=== PATIENT | female | born 1955 | race Two or more races ===

== ENCOUNTER 2019-06-24 08:40 | Day surgery (SDC) | payer OTHER | END 2019-06-24 14:45 | disposition home or self-care (01) | LOC: AMB-ENDOS 08:40 → ADM 13:30 → AMB-ENDOS 13:30 | DX: K57.32 Diverticulitis of large intestine without perforation or abscess without bleeding (principal); K64.1 Second degree hemorrhoids; K57.30 Diverticulosis of large intestine without perforation or abscess without bleeding; Z93.3 Colostomy status ==

== ENCOUNTER 2019-09-28 09:00 | Inpatient (IN) | payer OTHER ==
[~2019-09-28] VITALS: Ht 154.9 cm; Wt 83.0 kg
[2019-09-28] MEDS ORDERED: CATAFLAN PO (13:56)
[2019-10-05] MEDS ORDERED: DICLOFENAC POTA50 MG (16:32)
== END 2019-10-13 19:46 | disposition home or self-care (01) | DRG 940 ==
LOC: EDSTATUS 09:00 → ADM 09:00 → SURH 10-05 07:00 → O/R 10-05 08:14 → SURH 10-05 09:00 → SURG 10-05 18:19
PROVIDERS: ADMIT Colon & Rectal Surgery; ATTEND Colon & Rectal Surgery
PROC: 0WQF0ZZ Repair Abdominal Wall, Open Approach (ICD-10-PCS; 2019-10-05)
PROC: 0DJD8ZZ Inspection of Lower Intestinal Tract, Via Natural or Artificial Opening Endoscopic (ICD-10-PCS; 2019-10-05)
PROC: 4A033R1 Measurement of Arterial Saturation, Peripheral, Percutaneous Approach (ICD-10-PCS; 2019-10-05)
PROC: 4A12X4Z Monitoring of Cardiac Electrical Activity, External Approach (ICD-10-PCS; 2019-10-05)
PROC: 0DSN0ZZ Reposition Sigmoid Colon, Open Approach (ICD-10-PCS; principal; 2019-10-05 07:00)
DX: Z93.3 Colostomy status (principal); K43.3 Parastomal hernia with obstruction, without gangrene; K57.30 Diverticulosis of large intestine without perforation or abscess without bleeding; R50.82 Postprocedural fever; G47.33 Obstructive sleep apnea (adult) (pediatric); E66.09 Other obesity due to excess calories; Z03.818 Encounter for observation for suspected exposure to other biological agents ruled out

== ENCOUNTER 2019-09-28 14:37 | Outpatient (CLI) | payer OTHER ==
[~2019-09-28 14:37] MED LIST: CATAFLAN PO
== END 2019-09-30 13:59 | disposition home or self-care (01) ==
LOC: NUCLEAR 14:37
DX: I87.2 Venous insufficiency (chronic) (peripheral) (principal); Z86.718 Personal history of other venous thrombosis and embolism

== ENCOUNTER 2024-04-12 13:53 | Inpatient (IN) | payer OTHER ==
[~2024-04-12] VITALS: Ht 154.9 cm; Wt 90.7 kg
[~2024-04-12 13:53] MED LIST changes: +DICLOFENAC POTA50 MG
--- NOTE | 2024-04-12 14:11 | NUR ---
PACIENTE PRESENTA DOLOR ABDOMINAL DESDE SOFY HX PERFORACION DE DIVERTICULO FUE OPERADA POR DR. SAAVEDRA CON ILEOSTOMIA QUE SE REVIRTIO. SE MIDEN Y REPORTAN SIG- NOS VITALES Y SE UBICA EN AREA DE OBSERVACION.
[2024-04-12] MEDS ORDERED: 0.9 % SODIUM CHLORIDE 1,000 ML IV SCH (16:45)
[2024-04-12] MEDS ORDERED: KETOROLAC TROMETHAMINE 30 MG VIAL IV ONE (16:45)
[2024-04-12] MEDS ORDERED: ONDANSETRON HCL 2 MG/ML VIAL IV STA (17:26)
[2024-04-12 17:45] LABS: HEMATOCRIT 49.3 % (36.0-45.00); HEMOGLOBIN 16.6 g/dL (12.0-15.00); MEAN CELL VOLUME 84.7 fL (80.00-100.00); MEAN CORPUSCULAR HEMOGLOBIN 28.5 pg (27.00-32.0); MEAN CORPUSCULAR HGB CONC 33.6 g/dl (32.0-36.0); PLATELET COUNT 260 K/uL (150-450); RED BLOOD COUNT 5.82 M/uL (4.00-6.00); RED CELL DISTRIBUTION WIDTH 14.9 % (11.5-14.5)
[2024-04-12 18:00] LABS: CALCIUM 9.8 mg/dL (8.5-10.1); CREATININE SERUM 0.78 mg/dL (0.55-1.02); GFR 73.01; POTASSIUM 3.73 mEq/L (3.5-5.1)
[2024-04-12 18:24] LABS: PH,URINE 5.5 (5.0-8.0); URINE APPEARANCE Cloudy; URINE BILIRRUBIN Small (NEGATIVE); URINE BLOOD Moderate; URINE COLOR Dark Yellow; URINE GLUCOSE Negative (NEGATIVE); URINE KETONE 15 (NEGATIVE); URINE LEUKOCYTE Small; URINE NITRATE Negative
[2024-04-12 18:25] LABS: URINE CAST 3.41 uL (0.0-1.40); URINE EPITHELIAL CELLS 58.9 uL (0.0-38.8); URINE RBC 13.3 uL (0.0-20.8); URINE WBC 120.5 uL (0.0-23.2)
[2024-04-12 18:54] LABS: URINE PROTEIN 300 (NEGATIVE)
[2024-04-12 18:55] LABS: URINE BACTERIA > 9821.2 uL (0.0-1933)
[2024-04-12] MEDS ORDERED: PROMETHAZINE HCL 25 MG/ML AMPUL IM ONE (21:15)
--- NOTE | 2024-04-12 21:35 | NUR ---
SE ORIENTA A PTE SOBRE TX MEDICO ORDENADO POR , SE REALIZA GERRY DE MEUSTRAS DE LAB DEIDRE ORDEN MEDICA Y BAJO MEDIDAS ASEPTICA. VENOPUNCION PATENTE BAJANDO IV FLUIDS POR REGULADOR.
[2024-04-12] MEDS ORDERED: PIPERACILLIN/TAZOBACTAM SODIUM 3.375 GM VIAL IV ONE (22:00)
--- NOTE | 2024-04-12 22:51 | NUR ---
SE ORIENTA PTE SOBRE INSERCION DE NGT EL CUAL REFIERE ENTENDER.SE INTENTA ABEBE OCASION INSERTAR NGT Y PTE REHUSA.
[2024-04-12 23:36] LABS: AMYLASE 40 U/L (25-115); LIPASE 18 U/L (13-75)
[2024-04-13] MEDS ORDERED: ONDANSETRON HCL 4 MG in 0.9 % SODIUM CHLORIDE 50 ML IV PRN (00:15)
[2024-04-13] MEDS ORDERED: 0.9 % SODIUM CHLORIDE 1,000 ML IV SCH ×3 (00:15→09:15)
[2024-04-13] MEDS ORDERED: MORPHINE SULFATE 4 MG/ML CARTRIDGE IV ONE (00:15)
[2024-04-13] MEDS ORDERED: DEXTROSE 50 % IN WATER 0.5 G/ML DISP.SYRIN IV PRN (00:15)
[2024-04-13] MEDS ORDERED: INSULIN LISPRO 1,000 UNIT/10 ML UNITS SUBCUTANEO PRN (00:15)
[2024-04-13 01:55] LABS: INR 1.14; PARTIAL THROMBOPLASTIN TIME 30.3 SECONDS (22.0-34.0); PROTHROMBIN TIME 12.3 SECONDS (9.0-11.5)
[2024-04-13] MEDS ORDERED: MORPHINE SULFATE 4 MG/ML CARTRIDGE IV SCH (02:00)
[2024-04-13] MEDS ORDERED: PIPERACILLIN/TAZOBACTAM SODIUM 3.375 GM in DEXTROSE 5 % IN WATER 100 ML IV SCH (06:00)
[2024-04-13 06:44] LABS: ABG PH 7.309 (7.35-7.45); ABG PO2 76.8 mmHg (80-100); BASE EXCESS -8.5 mmol/l; BICARBONATE 16.7 mmol/l (23-25); SaO2 93.2 %; Tco2 17.7 mmol/l; o2 40 %
[2024-04-13 06:45] LABS: allen test SATISFACTORY; puncture site RADIAL RIGHT
[2024-04-13] MEDS ORDERED: MORPHINE SULFATE 4 MG/ML VIAL IV ONE (07:35)
[2024-04-13 08:05] LABS: ALBUMIN 3.3 gm/dL (3.4-5.0); BILIRUBIN TOTAL 1.8 mg/dL (0.3-1.2); CALCIUM 8.5 mg/dL (8.5-10.1); CREATININE SERUM 1.58 mg/dL (0.55-1.02); GFR 32.33; GLOBULINA 3.4 G/DL (2.4-3.5); POTASSIUM 4.31 mEq/L (3.5-5.1); TOTAL PROTEIN 6.7 gm/dL (6.4-8.2)
[2024-04-13] MEDS ORDERED: FAMOTIDINE/PF 20 MG in 0.9 % SODIUM CHLORIDE 8 ML IV PUSH SCH (09:00)
[2024-04-13 09:43] LABS: HEMATOCRIT 49.7 % (36.0-45.00); HEMOGLOBIN 16.4 g/dL (12.0-15.00); MEAN CELL VOLUME 86.2 fL (80.00-100.00); MEAN CORPUSCULAR HEMOGLOBIN 28.4 pg (27.00-32.0); RED BLOOD COUNT 5.77 M/uL (4.00-6.00); RED CELL DISTRIBUTION WIDTH 15.6 % (11.5-14.5)
[2024-04-13 09:43] LABS: ABG PH 7.369 (7.35-7.45); ABG PO2 330.6 mmHg (80-100); ABG pCO2 29.9 mmHg (35-45); BICARBONATE 16.8 mmol/l (23-25); SaO2 99.9 %; Tco2 17.8 mmol/l
[2024-04-13 09:44] LABS: allen test SATISFACTORY; o2 100 %; puncture site RADIAL RIGHT
[2024-04-13] MEDS ORDERED: RINGERS SOLUTION,LACTATED 1,000 ML IV SCH (10:00)
[2024-04-13] MEDS ORDERED: NOREPINEPHRINE BITARTRATE 1 MG/ML AMPUL IV SCH (10:00)
[2024-04-13 10:29] LABS: PLATELET COUNT 195 K/uL (150-450)
[2024-04-13] MEDS ORDERED: NOREPINEPHRINE BITARTRATE 4 MG/D5W WITH TITRATING INSTRUCTIONS IV SCH (10:30)
[2024-04-13] MEDS ORDERED: PROPOFOL 100 ML IV SCH (10:30)
[2024-04-13] MEDS ORDERED: DOPamine HCL IN DEXTROSE 5 % 250 ML IV SCH (15:30)
[2024-04-13] MEDS ORDERED: MIDAZOLAM HCL 50 MG/10 ML VIAL IV SCH (15:30)
[2024-04-13] MEDS ORDERED: MIDAZOLAM HCL 100 MG in 0.9 % SODIUM CHLORIDE 100 ML IV SCH (16:15)
[2024-04-13] MEDS ORDERED: MEROPENEM 500 MG/VIAL VIAL IV SCH (17:00)
[2024-04-13] MEDS ORDERED: METRONIDAZOLE/SODIUM CHLORIDE 100 ML IV SCH (17:00)
[2024-04-13] MEDS ORDERED: METOPROLOL TARTRATE 5MG/5ML AMPUL IV ONE (17:00)
[2024-04-13] MEDS ORDERED: VASOPRESSIN 20 UNITS/ML VIAL IV ONE (20:15)
[2024-04-13] MEDS ORDERED: SODIUM BICARBONATE 1 MEQ/ML DISP.SYRIN 50ML IV ONE (20:15)
[2024-04-13] MEDS ORDERED: LINEZOLID IN DEXTROSE 5% 300 ML IV SCH (21:00)
[2024-04-13] MEDS ORDERED: INSULIN GLARGINE,HUM.REC.ANLOG 1,000 UNITS/10 ML UNITS SUBCUTANEO SCH (21:00)
[2024-04-13 21:05] LABS: ABG PH 7.362 (7.35-7.45); ABG PO2 84.3 mmHg (80-100); ABG pCO2 34.7 mmHg (35-45); BASE EXCESS -5.3 mmol/l; BICARBONATE 19.3 mmol/l (23-25); SaO2 95.6 %; Tco2 20.3 mmol/l
[2024-04-13 21:06] LABS: allen test SATISFACTORY; o2 100 %; puncture site RADIAL LEFT
[2024-04-13] MEDS ORDERED: HYDROCORTISONE SODIUM SUCC/PF 100 MG VIAL IV ONE (21:30)
[2024-04-14] VITALS (27 sets, daily range): BP systolic 40–144; BP diastolic 20–129; O2SAT 79–100
[2024-04-14 06:21] LABS: ABG PH 7.164 (7.35-7.45); ABG pCO2 42.4 mmHg (35-45); BASE EXCESS -13.2 mmol/l; BICARBONATE 14.9 mmol/l (23-25); SaO2 97.8 %; Tco2 16.2 mmol/l; allen test SATISFACTORY; o2 100 %; puncture site RADIAL RIGHT
[2024-04-14 06:24] LABS: HEMATOCRIT 44.1 % (36.0-45.00); HEMOGLOBIN 14.4 g/dL (12.0-15.00); MEAN CELL VOLUME 86.6 fL (80.00-100.00); MEAN CORPUSCULAR HEMOGLOBIN 28.3 pg (27.00-32.0); MEAN CORPUSCULAR HGB CONC 32.7 g/dl (32.0-36.0); RED CELL DISTRIBUTION WIDTH 15.9 % (11.5-14.5)
[2024-04-14 06:34] LABS: PLATELET COUNT 122 K/uL (150-450)
[2024-04-14] MEDS ORDERED: PHENYLEPHRINE HCL 80 MG in 0.9 % SODIUM CHLORIDE 1,000 ML IV SCH (06:45)
[2024-04-14 06:52] LABS: ALBUMIN 2.1 gm/dL (3.4-5.0); BILIRUBIN TOTAL 0.81 mg/dL (0.3-1.2); CALCIUM 6.7 mg/dL (8.5-10.1); GLOBULINA 2.5 G/DL (2.4-3.5); PHOSPHOROUS 4.4 mg/dL (2.5-4.9); POTASSIUM 5.56 mEq/L (3.5-5.1); TOTAL PROTEIN 4.6 gm/dL (6.4-8.2)
[2024-04-14 07:21] LABS: GFR 9.23
[2024-04-14 07:22] LABS: C-REACTIVE PROTEIN 36.5 MG/DL (0.00-0.29)
[2024-04-14 07:23] LABS: CREATININE SERUM 4.68 mg/dL (0.55-1.02)
[2024-04-14] MEDS ORDERED: SODIUM BICARBONATE 1 MEQ/ML DISP.SYRIN 50ML IV SCH (08:00)
[2024-04-14] MEDS ORDERED: SODIUM BICARBONATE 1 MEQ/ML DISP.SYRIN 50ML IV ONE (08:45)
[2024-04-14] MEDS ORDERED: HYDROCORTISONE SODIUM SUCC/PF 100 MG VIAL IV SCH (09:00)
[2024-04-14] MEDS ORDERED: DOPamine HCL IN DEXTROSE 5 % 250 ML IV SCH (10:00)
[2024-04-14] MEDS ORDERED: NOREPINEPHRINE BITARTRATE 8 MG in DEXTROSE 5 % IN WATER 250 ML IV SCH (10:30)
[2024-04-14 12:34] LABS: ABG PH 7.205 (7.35-7.45); ABG PO2 176.8 mmHg (80-100); ABG pCO2 33.8 mmHg (35-45); BASE EXCESS -13.8 mmol/l; BICARBONATE 13.1 mmol/l (23-25); SaO2 99.1 %; Tco2 14.1 mmol/l
[2024-04-14 12:35] LABS: o2 100 %; puncture site RADIAL LEFT
[2024-04-14 12:36] LABS: allen test SATISFACTORY
[2024-04-14] MEDS ORDERED: SODIUM BICARBONATE 100 MEQ in DEXTROSE 5 % IN WATER 1,000 ML IV SCH (13:45)
[2024-04-14] MEDS ORDERED: NOREPINEPHRINE BITARTRATE 4 MG/D5W WITH TITRATING INSTRUCTIONS IV SCH (14:00)
[2024-04-14] MEDS ORDERED: 0.9 % SODIUM CHLORIDE 1,000 ML IV SCH (16:15)
[2024-04-14] MEDS ORDERED: EPINEPHRINE HCL/PF 4 MG in DEXTROSE 5 % IN WATER 250 ML IV SCH (17:15)
[2024-04-14] MEDS ORDERED: 0.9 % SODIUM CHLORIDE 1,000 ML IV ONE (17:15)
[2024-04-14] MEDS ORDERED: METRONIDAZOLE/SODIUM CHLORIDE 100 ML IV SCH (21:00)
[2024-04-14] MEDS ORDERED: MEROPENEM 500 MG/VIAL VIAL IV SCH (21:00)
[2024-04-15] VITALS (24 sets, daily range): BP systolic 39–164; BP diastolic 27–119; O2SAT 87–100
[2024-04-15 08:05] LABS: ALBUMIN 1.7 gm/dL (3.4-5.0); BILIRUBIN TOTAL 1.82 mg/dL (0.3-1.2); GLOBULINA 2.4 G/DL (2.4-3.5); POTASSIUM 5.88 mEq/L (3.5-5.1); TOTAL PROTEIN 4.1 gm/dL (6.4-8.2)
[2024-04-15 08:06] LABS: CALCIUM 5.2 mg/dL (8.5-10.1); CREATININE SERUM 6.12 mg/dL (0.55-1.02); GFR 6.78
[2024-04-15] MEDS ORDERED: 0.9 % SODIUM CHLORIDE 1,000 ML IV ONE (08:45)
[2024-04-15 09:14] LABS: MEAN CELL VOLUME 88.7 fL (80.00-100.00); MEAN CORPUSCULAR HEMOGLOBIN 27.5 pg (27.00-32.0); RED BLOOD COUNT 4.73 M/uL (4.00-6.00); RED CELL DISTRIBUTION WIDTH 16.5 % (11.5-14.5)
[2024-04-15] MEDS ORDERED: NOREPINEPHRINE BITARTRATE 16 MG in DEXTROSE 5 % IN WATER 500 ML IV SCH (09:30)
[2024-04-15 09:51] LABS: PLATELET COUNT 36 K/uL (150-450)
[2024-04-15] MEDS ORDERED: HYDROCORTISONE SODIUM SUCC/PF 100 MG VIAL IV SCH (13:00)
[2024-04-15] MEDS ORDERED: CALCIUM GLUCONATE 100 MG/ML VIAL IV SCH ×2 (13:00→16:00)
[2024-04-15 15:58] LABS: FIBRINOGEN 559 mg/dL (187.0-446.0); INR 1.49
[2024-04-15 16:00] LABS: D DIMER > 35.20 MG/L; PROTHROMBIN TIME 15.8 SECONDS (9.0-11.5)
[2024-04-15] MEDS ORDERED: ANIDULAFUNGIN 100 MG VIAL IV NR (17:00)
[2024-04-16] VITALS (8 sets, daily range): BP systolic 53–74; BP diastolic 32–63; O2SAT 100
[2024-04-16] MEDS ORDERED: MEROPENEM 500 MG/VIAL VIAL IV SCH (09:00)
[2024-04-16 09:16] LABS: ALBUMIN 1.3 gm/dL (3.4-5.0); ALKALINE PHOSPHATASE 181 U/L (50-136); BILIRUBIN TOTAL 3.34 mg/dL (0.3-1.2); BLOOD UREA NITROGEN 67 mg/dL (7-18); CHLORIDE 105 mmol/L (98-107); GLOBULINA 2.4 G/DL (2.4-3.5); LIPASE 26 U/L (13-75); OSMOLALITY SERUM 277 MOSM/KG (275-295); SODIUM 129 mmol/L (136-145); TOTAL PROTEIN 3.7 gm/dL (6.4-8.2)
[2024-04-16 09:43] LABS: HEMATOCRIT 39.1 % (36.0-45.00); HEMOGLOBIN 12.6 g/dL (12.0-15.00); MEAN CORPUSCULAR HEMOGLOBIN 28.3 pg (27.00-32.0); MEAN CORPUSCULAR HGB CONC 32.2 g/dl (32.0-36.0); RED BLOOD COUNT 4.45 M/uL (4.00-6.00); RED CELL DISTRIBUTION WIDTH 17.6 % (11.5-14.5)
[2024-04-16 10:00] LABS: PLATELET COUNT 70 K/uL (150-450)
[2024-04-16 10:02] LABS: MANUAL PLATELET COUNT 72
[2024-04-16] MEDS ORDERED: SODIUM BICARBONATE 1 MEQ/ML DISP.SYRIN 50ML IV ONE (10:30)
[2024-04-16] MEDS ORDERED: EPINEphrine 10 ML DISP.SYRIN IV SCH (10:30)
[2024-04-16 11:22] LABS: BUN CREA RATIO 10 (7.0-25.0); GFR 5.76
[2024-04-16 11:23] LABS: ANION GAP 23 (10.0-20.0)
[2024-04-16 11:24] LABS: ALT/SGPT > 3510 U/L (12-78)
[2024-04-16 11:26] LABS: CALCIUM 5.3 mg/dL (8.5-10.1); CARBON DIOXIDE 9 mEq/L (21-32)
[2024-04-16 11:27] LABS: CREATININE SERUM 7.04 mg/dL (0.55-1.02); POTASSIUM 7.67 mEq/L (3.5-5.1)
[2024-04-16] MEDS ORDERED: HYDROCORTISONE SODIUM SUCC/PF 50 MG/ML ML IV SCH (12:00)
[2024-04-16] MEDS ORDERED: ANIDULAFUNGIN 100 MG VIAL IV SCH (12:00)
[2024-04-16 13:09] LABS: AMYLASE 970 U/L (25-115); GLUCOSE FASTING 82 mg/dL (65-100)
== END 2024-04-18 07:43 | disposition expired | DRG 853 ==
LOC: ER 13:55 → SURG 04-13 00:11 → O/R 04-13 11:08 → ICU 04-14 03:55 → ICU-2 04-16 18:52
PROVIDERS: Anesthesiology Pain Medicine; Emergency Medicine; General Practice; Internal Medicine; Internal Medicine Infectious Disease; Student in an Organized Health Care Education/Training Program; ADMIT Student in an Organized Health Care Education/Training Program; ATTEND Student in an Organized Health Care Education/Training Program
PROC: 0DNW0ZZ Release Peritoneum, Open Approach (ICD-10-PCS; 2024-04-13)
PROC: 0DQ80ZZ Repair Small Intestine, Open Approach (ICD-10-PCS; 2024-04-13)
PROC: 0WQF0ZZ Repair Abdominal Wall, Open Approach (ICD-10-PCS; 2024-04-13)
PROC: 0BH17EZ Insertion of Endotracheal Airway into Trachea, Via Natural or Artificial Opening (ICD-10-PCS; 2024-04-13)
PROC: 02HV33Z Insertion of Infusion Device into Superior Vena Cava, Percutaneous Approach (ICD-10-PCS; 2024-04-13)
PROC: 0DJD0ZZ Inspection of Lower Intestinal Tract, Open Approach (ICD-10-PCS; principal; 2024-04-13 10:45)
DX: A41.9 Sepsis, unspecified organism (principal); G93.41 Metabolic encephalopathy; J95.821 Acute postprocedural respiratory failure; R65.21 Severe sepsis with septic shock; K43.6 Other and unspecified ventral hernia with obstruction, without gangrene; N39.0 Urinary tract infection, site not specified; N17.9 Acute kidney failure, unspecified; E87.22 Chronic metabolic acidosis; I46.9 Cardiac arrest, cause unspecified; R57.0 Cardiogenic shock; E66.01 Morbid (severe) obesity due to excess calories; I95.89 Other hypotension; I35.0 Nonrheumatic aortic (valve) stenosis